=== PATIENT | male | born 1950 | race Caucasian/White ===

== ENCOUNTER 2021-11-28 15:15 | Observation (INO) | payer MEDICARE, BC ==
[2021-11-28] MEDS ORDERED: HYDROmorphone 1 MG/ML Syringe IM ONE (16:21)
[2021-11-28 18:08] LABS: ESTIMATED GFR 73 mL/min (>60)
[2021-11-28] MEDS ORDERED: HYDROmorphone 1 MG/ML Syringe IVPUSH PRN (21:06)
[2021-11-28] MEDS ORDERED: Acetaminophen 325 MG Tab PO PRN (21:06)
[2021-11-28] MEDS ORDERED: Ondansetron 4 MG/2 ML SDV IV PRN (21:06)
[2021-11-28] MEDS ORDERED: Ondansetron 4 MG Tab.DIS PO PRN (21:06)
[2021-11-28] MEDS ORDERED: Magnesium Hydroxide 400 MG/5 ML Susp 30 ML Cup PO PRN (21:06)
[2021-11-28] MEDS ORDERED: Melatonin 3 MG Tab PO PRN (21:06)
[2021-11-28] MEDS: oxyCODONE 5 MG Tab PO PRN (22:05)
[2021-11-29] MEDS ORDERED: Iopamidol 612 MG/ML 100 ML Bottle IV STA (04:30)
[2021-11-29] MEDS ORDERED: Sodium Chloride 0.9% 50 ML IV STA (04:30)
[2021-11-29] MEDS: oxyCODONE 5 MG Tab PO PRN (04:55)
[2021-11-29] MEDS ORDERED: Levothyroxine 50 MCG Tab PO SCH (07:30)
[2021-11-29] MEDS ORDERED: Levothyroxine 25 MCG Tab PO SCH (07:30)
== END 2021-11-29 11:22 | disposition home or self-care (01) ==
LOC: JP.ED 15:15 → JP.ICU 19:36
PROVIDERS: ADMIT Internal Medicine; ATTEND Internal Medicine
DX: S22.41XA Multiple fractures of ribs, right side, initial encounter for closed fracture (principal); J98.11 Atelectasis; N32.89 Other specified disorders of bladder; N40.0 Benign prostatic hyperplasia without lower urinary tract symptoms; K57.30 Diverticulosis of large intestine without perforation or abscess without bleeding; N28.89 Other specified disorders of kidney and ureter; Z79.899 Other long term (current) drug therapy; Z88.0 Allergy status to penicillin; Z88.2 Allergy status to sulfonamides; E03.9 Hypothyroidism, unspecified; Z98.890 Other specified postprocedural states; Z20.822 Contact with and (suspected) exposure to COVID-19; Z79.83 Long term (current) use of bisphosphonates; Z79.890 Hormone replacement therapy; W19.XXXA Unspecified fall, initial encounter
CPT/HCPCS: 36415; 71045; 71250; 74178; 80053; 81001; 83690; 85025; 96372; 99285; A9270; G0378; J1170; J3490; Q9967; U0002